=== PATIENT | female | born 1995 | race African-American/Black ===

== ENCOUNTER 2022-08-11 07:53 | Emergency (ER) | payer BC, SELFPAY ==
[2022-08-11] MEDS ORDERED: Sodium Bicarb 50 MEQ/50 ML Abboject 8.4% SYRINGE ONE (07:54)
[2022-08-11] MEDS ORDERED: Calcium Chloride 1 GM/10 ML Abboject SYRINGE ONE (07:54)
[2022-08-11] MEDS ORDERED: EPINEPHrine 1 MG/10 ML Abboject SYRINGE ONE (07:54)
[2022-08-11] MEDS ORDERED: CEFAZOLIN 2 GM VIAL ONE (08:04)
[2022-08-11] MEDS ORDERED: NOREPINEPHRINE 8 MG/250 ML-D5W 250 ML ONE (08:15)
[2022-08-11 08:26] LABS: INR-International Normal Ratio 1.5; PTT 34.1 sec (22.9-36.1); Prothrombin Time 18.5 sec (12.0-14.7)
[2022-08-11 08:27] LABS: #Eosinphils 0.2 thou/uL (0.0-0.7); #Lymphocytes 5.2 thou/uL (1.20-3.40); #Monocytes 0.3 thou/uL (0.11-0.59); %Eosinophils 3.4 % (0.0-10.0); %Lymphocytes 77.1 % (21.0-51.0); %Monocytes 4.1 % (0.0-10.0); %Neutrophils 15.4 % (42.0-75.0); Hemoglobin 9.6 g/dL (12.0-16.0); Mean Corpuscular HGB CONC 31.8 g/dL (32.0-36.0); Mean Corpuscular Volume 94.3 fl (78.0-98.0); Mean Platelet Volume 7.8 fL (7.4-10.4); Platelet Count 242 10x3/uL (130-400); RBC Distribution Width 12.1 % (11.5-14.5); Red Blood Cell (RBC) Count 3.21 mill/uL (4.20-5.40); White Blood Cell (WBC) Count 6.8 10x3/uL (4.8-10.8)
[2022-08-11 08:28] LABS: BHCG - Serum Negative (NEGATIVE); Pregs Control Background? CLEAR/WHITE (CLR/WHITE); Pregs Control Bar Appear? YES (CONTROL BAR)
[2022-08-11 08:35] LABS: ALT (SGPT) 647 U/L (8-55); AST (SGOT) 535 U/L (5-34); Albumin 3.4 g/dL (3.5-5.0); Alkaline Phosphatase 52 U/L (40-110); Anion Gap 23 mmol/L (10-20); BUN (Urea Nitrogen) 5 mg/dL (7.0-18.7); Bilirubin, Total 0.2 mg/dL (0.2-1.2); Calc. Creatinine Clearance 0 mL/min (70-130); Carbon Dioxide 24 mmol/L (22-29); Chloride 104 mmol/L (98-107); Estimated GFR 85; Globulin 2.1 g/dL (2.4-3.5); Glucose 236 mg/dL (70-105); Lipase 322 U/L (8-78); Potassium 4.5 mmol/L (3.5-5.1); Protein, Total 5.5 g/dL (6.0-8.3); Sodium 146 mmol/L (136-145)
[2022-08-11 08:43] LABS: Acetaminophen Less than 10.0 mcg/mL (10.0-30.0); Alcohol 169 mg/dL (Less than 10); Salicylate Less than 8.0 mg/dL (15.0-30.0)
[2022-08-11] MEDS ORDERED: Dextrose 5% in Water 1,000 ML IV PRN (08:53)
[2022-08-11] MEDS ORDERED: Ondansetron PF 4 MG/2 ML Vial IVP PRN (08:53)
[2022-08-11] MEDS ORDERED: Dextrose 50% Abboject 50 ML SYRINGE SLOW IVP PRN (08:53)
[2022-08-11] MEDS ORDERED: hydrALAZINE 20 MG/ML VIAL SLOW IVP PRN (08:53)
[2022-08-11] MEDS ORDERED: TETANUS, DIPHTHERIA TOX,ADULT (TDVAX) 0.5 ML VIAL IM ONE (08:53)
[2022-08-11] MEDS ORDERED: HumaLOG 300 UNITS/3 ML VIAL SC PRN (08:53)
[2022-08-11] MEDS ORDERED: Sodium Chloride 0.9% 1,000 ML IV SCH (09:00)
[2022-08-11] MEDS ORDERED: Gentamicin Sulfate 300 MG in Sodium Chloride 0.9% 100 ML IVPB SCH (09:00)
[2022-08-11 09:07] LABS: Analyzer IN Cardio ER; Base Excess (BEa) -15.6 mEq/L (-2.0 to +3.0); CO2 Tension 33.9 mmHg (35.0-45.0); Carboxyhemoglobin (COHb) 0.2 gm% (0.0-3.0); O2 Tension (PaO2), arterial 244.2 mmHg (80.0-100.0); Potassium - ABG Lab 3.83 mmol/L (3.70-5.30)
[2022-08-11 09:08] LABS: ALV-art Gradient 426.425 mmHg (0-20); Actual Bicarbonate (HCO3a) 11.9 mEq/L (22-28); Puncture Site RRA; pH, Arterial 7.16 (7.35-7.45)
[2022-08-11 09:23] LABS: Bacteria/HPF None Seen HPF (None Seen); Bilirubin Negative (Negative); Blood, Urine 3+ (Negative); Clarity Turbid (Clear); Glucose, Urine (Dipstick) Normal (Negative); Ketone, Urine Negative (Negative); Leukocyte Negative Leu/uL (Negative); Nitrite Negative (Negative); Protein, Urine (Dipstick) 10 mg/dL (Neg-Trace); RBC/HPF Greater than 50 HPF (0-3); Specific Gravity, Urine 1.012 (1.002-1.036); Squamous Epithelial None Seen HPF (0-3); Urobilinogen Normal mg/dL (Less than 2); WBC/HPF 0-3 HPF (0-3); pH, Urine 5.5 (5.0-9.0)
[2022-08-11 09:26] LABS: Amphetamine Not Detected (NotDetected); Barbiturates Screen Not Detected (NotDetected); Benzodiazepine Screen Not Detected (NotDetected); Cocaine Metabolite Screen Not Detected (NotDetected); Methadone Not Detected (NotDetected); Methamphetamine Not Detected (NotDetected); Opiate Screen Not Detected (NotDetected); Oxycodone Screen Not Detected (NotDetected); Phencyclidine (PCP) Not Detected (NotDetected); THC/Cannabinoid Screen Not Detected (NotDetected); Tricyclic Screen Not Detected (NotDetected)
[2022-08-11] MEDS ORDERED: Morphine 4 MG/ML VIAL SLOW IVP PRN (10:20)
[2022-08-11] MEDS ORDERED: Boostrix 0.5 ML (Tdap) VIAL (>/=7 yrs of age) ONE (10:33)
[2022-08-11] MEDS ORDERED: Iopamidol-370 76% 500 ML 1 ML ONE ×2 (10:47→10:50)
[2022-08-11 10:53] LABS: SARS-CoV-2 NAA Rapid Test Not Detected (NotDetected)
[2022-08-11 11:19] LABS: #Eosinphils 0.1 thou/uL (0.0-0.7); #Lymphocytes 1.3 thou/uL (1.20-3.40); #Neutrophils 9.8 thou/uL (1.40-6.50); %Basophils 0.1 % (0.0-1.0); %Eosinophils 0.5 % (0.0-10.0); %Lymphocytes 10.6 % (21.0-51.0); %Monocytes 8.5 % (0.0-10.0); %Neutrophils 80.3 % (42.0-75.0); Hemoglobin 11.1 g/dL (12.0-16.0); Mean Corpuscular HGB CONC 34.8 g/dL (32.0-36.0); Mean Corpuscular Hemoglobin 32.7 pg (27.0-31.0); Mean Corpuscular Volume 93.7 fl (78.0-98.0); Mean Platelet Volume 7.4 fL (7.4-10.4); Platelet Count 192 10x3/uL (130-400); Red Blood Cell (RBC) Count 3.41 mill/uL (4.20-5.40); White Blood Cell (WBC) Count 12.2 10x3/uL (4.8-10.8)
[2022-08-11 11:41] LABS: BUN (Urea Nitrogen) 9 mg/dL (7.0-18.7); Calc. Creatinine Clearance 0 mL/min (70-130); Calcium 9.7 mg/dL (7.8-10.44); Carbon Dioxide 18 mmol/L (22-29); Chloride 110 mmol/L (98-107); Estimated GFR 72; Glucose 118 mg/dL (70-105); Magnesium 1.8 mg/dL (1.6-2.6); Potassium 3.8 mmol/L (3.5-5.1); Sodium 149 mmol/L (136-145)
[2022-08-11 11:44] LABS: Anion Gap 24 mmol/L (10-20)
[2022-08-11] MEDS ORDERED: Calcium Chloride 1 GM/10 ML Abboject SYRINGE IVP SCH (13:00)
[2022-08-11] MEDS: Sodium Chloride 0.9% 1,000 ML IV SCH ×2 (14:20→18:31)
[2022-08-11] MEDS ORDERED: Hydrocortisone Sod Succ/PF 100 mg/2 ml Vial IVP SCH (14:45)
[2022-08-11] MEDS ORDERED: FENTANYL 500 MCG/10 ML VIAL 2,000 MCG in Sodium Chloride 0.9% 60 ML IV PRN (15:51)
[2022-08-11] MEDS: NOREPINEPHRINE 8 MG/250 ML-D5W 250 ML IVPB SCH (15:58)
[2022-08-11] MEDS ORDERED: Fentanyl CADD 100 ML IV SCH (16:00)
[2022-08-11] MEDS ORDERED: DISCONTINUE PREVIOUS NARCOTIC PAIN MEDICATIONS AND BENZODIAZEPINES FS SCH (16:00)
[2022-08-11] MEDS: Hydrocortisone Sod Succ/PF 100 mg/2 ml Vial IVP SCH (18:21)
[2022-08-11 18:55] LABS: Hemoglobin 9.5 g/dL (12.0-16.0); Mean Corpuscular HGB CONC 37.7 g/dL (32.0-36.0); Mean Corpuscular Hemoglobin 34.5 pg (27.0-31.0); Mean Corpuscular Volume 91.5 fl (78.0-98.0); Mean Platelet Volume 7.3 fL (7.4-10.4); Platelet Count 144 10x3/uL (130-400); RBC Distribution Width 12.1 % (11.5-14.5); Red Blood Cell (RBC) Count 2.74 mill/uL (4.20-5.40); White Blood Cell (WBC) Count 17.4 10x3/uL (4.8-10.8)
[2022-08-11 19:08] LABS: Lactic Acid 3.5 mmol/L (0.5-2.2)
[2022-08-11 19:09] LABS: Band 19 % (5-11); Lymphocytes 1 % (21-51); MDiff Complete? YES; Monocytes 4 % (0-10); Neutrophil 76 % (42-75); Ovalocytes SLIGHT = 2-5 cells (100X) (0-1/hpf); Platelet Morphology Comment Appears Adequate; Polychromasia SLIGHT = 2-3 cells (100X) (0-2/hpf)
[2022-08-11 19:13] LABS: Anion Gap 18 mmol/L (10-20); BUN (Urea Nitrogen) 13 mg/dL (7.0-18.7); Calc. Creatinine Clearance 112 mL/min (70-130); Calcium 9.8 mg/dL (7.8-10.44); Carbon Dioxide 23 mmol/L (22-29); Chloride 113 mmol/L (98-107); Estimated GFR 76; Glucose 105 mg/dL (70-105); INR-International Normal Ratio 1.4; Magnesium 1.5 mg/dL (1.6-2.6); Phosphorus 4.3 mg/dL (2.3-4.7); Potassium 3.5 mmol/L (3.5-5.1); Prothrombin Time 18.1 sec (12.0-14.7); Sodium 150 mmol/L (136-145)
[2022-08-11 19:16] LABS: PTT 30.7 sec (22.9-36.1)
[2022-08-11] MEDS ORDERED: Magnesium Sulfate In Water 4 GM in Premix Bag 1 BAG IVPB SCH (19:30)
[2022-08-11] MEDS ORDERED: Potassium Chloride 40 MEQ in Premix Bag 1 BAG IVPB SCH (19:30)
[2022-08-11 19:46] LABS: CK (CPK) 10169 U/L (29-168)
[2022-08-11] MEDS ORDERED: Sterile Water 10 ML ONE (20:46)
[2022-08-11] MEDS: Famotidine/PF 20 mg/2ml Vial SLOW IVP SCH (20:47)
[2022-08-12] MEDS: Hydrocortisone Sod Succ/PF 100 mg/2 ml Vial IVP SCH ×3 (01:08→19:51)
[2022-08-12] MEDS: Sodium Chloride 0.9% 1,000 ML IV SCH ×2 (01:08→19:55)
[2022-08-12 04:46] LABS: INR-International Normal Ratio 1.3
[2022-08-12 04:47] LABS: PTT 31.6 sec (22.9-36.1)
[2022-08-12 04:52] LABS: Lactic Acid 2.5 mmol/L (0.5-2.2)
[2022-08-12 04:58] LABS: Anion Gap 16 mmol/L (10-20); BUN (Urea Nitrogen) 13 mg/dL (7.0-18.7); Calc. Creatinine Clearance 153 mL/min (70-130); Calcium 8.3 mg/dL (7.8-10.44); Carbon Dioxide 19 mmol/L (22-29); Chloride 118 mmol/L (98-107); Estimated GFR 110; Glucose 117 mg/dL (70-105); Magnesium 2.4 mg/dL (1.6-2.6); Phosphorus 4.2 mg/dL (2.3-4.7); Potassium 4.2 mmol/L (3.5-5.1); Sodium 149 mmol/L (136-145)
[2022-08-12 05:24] LABS: CK (CPK) 17823 U/L (29-168)
[2022-08-12 05:35] LABS: Band 30 % (5-11); Hemoglobin 7.4 g/dL (12.0-16.0); Lymphocytes 5 % (21-51); MDiff Complete? YES; Mean Corpuscular HGB CONC 33.8 g/dL (32.0-36.0); Mean Corpuscular Hemoglobin 31.2 pg (27.0-31.0); Mean Corpuscular Volume 92.4 fl (78.0-98.0); Mean Platelet Volume 8.2 fL (7.4-10.4); Metamyelocyte 3 % (0-0); Monocytes 2 % (0-10); Neutrophil 60 % (42-75); Platelet Count 123 10x3/uL (130-400); Platelet Morphology Comment Appears Decreased; RBC Distribution Width 12.3 % (11.5-14.5); RBC Morphology Normal; Red Blood Cell (RBC) Count 2.36 mill/uL (4.20-5.40); White Blood Cell (WBC) Count 17.3 10x3/uL (4.8-10.8)
[2022-08-12] MEDS ORDERED: Sodium Chloride 0.9% 1,000 ML IV SCH ×2 (05:56→13:03)
[2022-08-12 06:02] LABS: Actual Bicarbonate (HCO3a) 20.1 mEq/L (22-28); Base Excess (BEa) -2.5 mEq/L (-2.0 to +3.0); CO2 Tension 26.2 mmHg (35.0-45.0); Calcium, Ionized (arterial) 1.11 mmol/L (1.12-1.30); Carboxyhemoglobin (COHb) 0.5 gm% (0.0-3.0); Hemoglobin (Hb) 7.7 g/dL (12.0-16.0); O2 Tension (PaO2), arterial 116.7 mmHg (80.0-100.0); Potassium - ABG Lab 4.11 mmol/L (3.70-5.30)
[2022-08-12 06:05] LABS: Puncture Site LRA
[2022-08-12 06:21] VITALS: TEMP 98
[2022-08-12] MEDS ORDERED: Calcium Chloride 1 GM/10 ML Abboject SYRINGE IVP SCH (07:30)
[2022-08-12] MEDS ORDERED: Piperacillin/Tazobactam 3.375 GM in Sodium Chloride 0.9% 100 ML IVPB SCH (07:45)
[2022-08-12 09:39] LABS: ALT (SGPT) 468 U/L (8-55); AST (SGOT) 737 U/L (5-34); Albumin 3.3 g/dL (3.5-5.0); Alkaline Phosphatase 46 U/L (40-110); Bilirubin, Direct 0.5 mg/dL (0.1-0.3); Bilirubin, Total 1.1 mg/dL (0.2-1.2); Protein, Total 5.3 g/dL (6.0-8.3)
[2022-08-12] MEDS: NOREPINEPHRINE 8 MG/250 ML-D5W 250 ML IVPB SCH (09:54)
[2022-08-12] MEDS: Famotidine/PF 20 mg/2ml Vial SLOW IVP SCH ×2 (09:57→20:26)
[2022-08-12 10:47] LABS: Actual Bicarbonate (HCO3a) 20.9 mEq/L (22-28); Base Excess (BEa) -3.2 mEq/L (-2.0 to +3.0); CO2 Tension 32.6 mmHg (35.0-45.0); Calcium, Ionized (arterial) 1.35 mmol/L (1.12-1.30); Carboxyhemoglobin (COHb) 0.5 gm% (0.0-3.0); Hemoglobin (Hb) 7.2 g/dL (12.0-16.0); Potassium - ABG Lab 4.23 mmol/L (3.70-5.30); pH, Arterial 7.42 (7.35-7.45)
[2022-08-12 10:48] LABS: Puncture Site Arterial Line
[2022-08-12] MEDS: Levothyroxine Sodium 400 MCG in Sodium Chloride 0.9% 100 ML IVPB SCH ×2 (11:10→20:26)
[2022-08-12] MEDS: Piperacillin/Tazobactam 3.375 GM in Sodium Chloride 0.9% 100 ML IVPB SCH ×2 (13:22→20:26)
[2022-08-12] MEDS ORDERED: Furosemide 20 MG/2 ML VIAL SLOW IVP SCH (18:00)
[2022-08-12] MEDS ORDERED: Morphine 4 MG/ML VIAL SLOW IVP SCH (19:45)
[2022-08-12 20:00] LABS: #Lymphocytes 1.2 thou/uL (1.20-3.40); #Neutrophils 12.7 thou/uL (1.40-6.50); %Eosinophils 0.1 % (0.0-10.0); %Lymphocytes 8.2 % (21.0-51.0); %Monocytes 6.4 % (0.0-10.0); %Neutrophils 85.3 % (42.0-75.0); Mean Corpuscular HGB CONC 34.5 g/dL (32.0-36.0); Mean Corpuscular Volume 92.9 fl (78.0-98.0); Mean Platelet Volume 8.6 fL (7.4-10.4); Platelet Count 99 10x3/uL (130-400); RBC Distribution Width 12.6 % (11.5-14.5); Red Blood Cell (RBC) Count 2.49 mill/uL (4.20-5.40); White Blood Cell (WBC) Count 14.8 10x3/uL (4.8-10.8)
[2022-08-12 20:19] LABS: Anion Gap 13 mmol/L (10-20); BUN (Urea Nitrogen) 18 mg/dL (7.0-18.7); Calc. Creatinine Clearance 112 mL/min (70-130); Carbon Dioxide 20 mmol/L (22-29); Chloride 119 mmol/L (98-107); Estimated GFR 76; Glucose 137 mg/dL (70-105); Phosphorus 4.1 mg/dL (2.3-4.7); Potassium 4.2 mmol/L (3.5-5.1); Sodium 148 mmol/L (136-145)
[2022-08-13] MEDS: Sodium Chloride 0.9% 1,000 ML IV SCH ×3 (00:34→10:43)
[2022-08-13] MEDS: Hydrocortisone Sod Succ/PF 100 mg/2 ml Vial IVP SCH ×2 (02:39→10:51)
[2022-08-13] MEDS: Piperacillin/Tazobactam 3.375 GM in Sodium Chloride 0.9% 100 ML IVPB SCH ×2 (04:00→12:14)
[2022-08-13 04:34] LABS: #Lymphocytes 0.9 thou/uL (1.20-3.40); #Monocytes 1.1 thou/uL (0.11-0.59); #Neutrophils 13.1 thou/uL (1.40-6.50); %Eosinophils 0.1 % (0.0-10.0); %Lymphocytes 5.8 % (21.0-51.0); %Monocytes 7.3 % (0.0-10.0); %Neutrophils 86.9 % (42.0-75.0); Hemoglobin 7.7 g/dL (12.0-16.0); Mean Corpuscular HGB CONC 33.5 g/dL (32.0-36.0); Mean Corpuscular Hemoglobin 31.5 pg (27.0-31.0); Mean Corpuscular Volume 94.1 fl (78.0-98.0); Mean Platelet Volume 8.7 fL (7.4-10.4); Platelet Count 100 10x3/uL (130-400); RBC Distribution Width 12.9 % (11.5-14.5); Red Blood Cell (RBC) Count 2.45 mill/uL (4.20-5.40); White Blood Cell (WBC) Count 15.1 10x3/uL (4.8-10.8)
[2022-08-13 04:44] LABS: Lactic Acid 3.6 mmol/L (0.5-2.2)
[2022-08-13 04:51] LABS: Anion Gap 14 mmol/L (10-20); BUN (Urea Nitrogen) 21 mg/dL (7.0-18.7); Calc. Creatinine Clearance 96 mL/min (70-130); Calcium 8.4 mg/dL (7.8-10.44); Carbon Dioxide 21 mmol/L (22-29); Chloride 119 mmol/L (98-107); Estimated GFR 64; Glucose 158 mg/dL (70-105); Magnesium 2.1 mg/dL (1.6-2.6); Potassium 3.9 mmol/L (3.5-5.1); Sodium 150 mmol/L (136-145)
[2022-08-13 05:22] LABS: CK (CPK) 18507 U/L (29-168)
[2022-08-13] MEDS ORDERED: Sodium Bicarbonate 150 MEQ in Dextrose 5% in Water 1,000 ML IV SCH ×2 (07:00→07:30)
[2022-08-13 07:42] LABS: Base Excess (BEa) -2.2 mEq/L (-2.0 to +3.0); Calcium, Ionized (arterial) 1.13 mmol/L (1.12-1.30); Carboxyhemoglobin (COHb) 0.3 gm% (0.0-3.0); Hemoglobin (Hb) 9.2 g/dL (12.0-16.0); O2 Tension (PaO2), arterial 133.3 mmHg (80.0-100.0); Potassium - ABG Lab 3.83 mmol/L (3.70-5.30); pH, Arterial 7.42 (7.35-7.45)
[2022-08-13 07:45] LABS: Puncture Site Arterial Line
[2022-08-13] MEDS: Famotidine/PF 20 mg/2ml Vial SLOW IVP SCH (10:56)
[2022-08-13 11:11] VITALS: BP 125/75
[2022-08-13 12:59] VITALS: BMI 34.6
[2022-08-13] MEDS: Levothyroxine Sodium 400 MCG in Sodium Chloride 0.9% 100 ML IVPB SCH (13:53)
[2022-08-13 14:37] LABS: Actual Bicarbonate (HCO3a) 22.4 mEq/L (22-28); CO2 Tension 31.7 mmHg (35.0-45.0); Calcium, Ionized (arterial) 1.17 mmol/L (1.12-1.30); Carboxyhemoglobin (COHb) 0.6 gm% (0.0-3.0); Hemoglobin (Hb) 7.5 g/dL (12.0-16.0); O2 Tension (PaO2), arterial 76.1 mmHg (80.0-100.0); Potassium - ABG Lab 3.32 mmol/L (3.70-5.30); pH, Arterial 7.47 (7.35-7.45)
[2022-08-13 14:42] LABS: Puncture Site Arterial Line
[2022-08-13 14:43] LABS: ALV-art Gradient 169.475 mmHg (0-20)
[2022-08-13 14:44] LABS: Anion Gap 12 mmol/L (10-20); BUN (Urea Nitrogen) 17 mg/dL (7.0-18.7); Calc. Creatinine Clearance 123 mL/min (70-130); Calcium 8.5 mg/dL (7.8-10.44); Carbon Dioxide 21 mmol/L (22-29); Chloride 127 mmol/L (98-107); Estimated GFR 85; Glucose 126 mg/dL (70-105); Potassium 3.6 mmol/L (3.5-5.1)
[2022-08-13 14:54] LABS: Sodium 156 mmol/L (136-145)
[2022-08-13 15:04] LABS: Base Excess (BEa) -1.6 mEq/L (-2.0 to +3.0); CO2 Tension 38.3 mmHg (35.0-45.0); Calcium, Ionized (arterial) 1.13 mmol/L (1.12-1.30); Carboxyhemoglobin (COHb) 0.6 gm% (0.0-3.0); Hemoglobin (Hb) 7.1 g/dL (12.0-16.0); O2 Tension (PaO2), arterial 75.6 mmHg (80.0-100.0); Potassium - ABG Lab 3.06 mmol/L (3.70-5.30)
[2022-08-13 15:07] LABS: ALV-art Gradient 161.725 mmHg (0-20)
[2022-08-13] MEDS ORDERED: Dextrose 5 %-0.45 % NaCl 1,000 ML IV SCH (15:30)
[2022-08-13] MEDS ORDERED: D5 1/2 NS w/10 mEq KCl 1,000 ML/1,000 ML BAG IV SCH (15:30)
[2022-08-13 15:45] LABS: Actual Bicarbonate (HCO3a) 27.3 mEq/L (22-28); Base Excess (BEa) -1.5 mEq/L (-2.0 to +3.0); Calcium, Ionized (arterial) 1.22 mmol/L (1.12-1.30); Carboxyhemoglobin (COHb) 0.7 gm% (0.0-3.0); Hemoglobin (Hb) 7.4 g/dL (12.0-16.0); O2 Tension (PaO2), arterial 100.2 mmHg (80.0-100.0)
[2022-08-13 15:49] LABS: pH, Arterial 7.17 (7.35-7.45)
[2022-08-13 15:50] LABS: CO2 Tension 76.6 mmHg (35.0-45.0); Puncture Site Arterial Line
== END 2022-08-11 11:44 | disposition short-term general hospital (02) ==
LOC: ERS 07:53 → EDBD 07:53 → UNDOADMIN 08:19 → CCU 08:19 → UNDOADMIN 08-13 17:35 → UNDODISIN 08-13 17:35
DX: S06.2XAA Diffuse traumatic brain injury with loss of consciousness status unknown, initial encounter (principal); S06.8 Other specified intracranial injuries; S89.91XA Unspecified injury of right lower leg, initial encounter; S89.92XA Unspecified injury of left lower leg, initial encounter; Z86.74 Personal history of sudden cardiac arrest; V89.2XXA Person injured in unspecified motor-vehicle accident, traffic, initial encounter
CPT/HCPCS: 36415; 36416; 36430; 36556; 36600; 51702; 70450; 70498; 71045; 71260; 72125; 72170; 72194; 74018; 74177; 80048; 80053; 80076; 80306; 80307; 81003; 81015; 82533; 82550; 82805; 83605; 83690; 83735; 83880; 83930; 84100; 84703; 85025; 85384; 85610; 85730; 86850; 86900; 86901; 87070; 87086; 87205; 90471; 90715; 93005; 94002; 94003; 94640; 94760; 96365; 96366; 96375; 96376; G0390; J0171; J1580; J1720; J1940; J2270; J2543; J3475; J3480; J3490; J7050; J7620; P9012; P9016; P9035; P9045; P9048; P9059; Q9967; S0028; U0002